=== PATIENT | male | born 1935 | race Caucasian/White ===

== ENCOUNTER 2019-09-12 15:00 | Inpatient (IN) | payer OTHER ==
[~2019-09-12] VITALS: Ht 177.8 cm; Wt 68.0 kg
[2019-09-12 15:07] VITALS: BP 118/88
[2019-09-12] MEDS ORDERED: METFORMIN HCL500 M3 PO (15:17)
[2019-09-12 15:48] LABS: ABSOLUTE LYMPHOCYTES 0.8 thou/uL (0.8-5.3); ABSOLUTE MONOCYTES 0.3 thou/uL (0.0-1.2); ABSOLUTE NEUTROPHILS 4.8 thou/uL (1.6-8.1); BASOPHILS 0.2 %; EOSINOPHILS 0.3 %; HEMATOCRIT 41.9 % (42.0-52.0); HEMOGLOBIN 14.2 gm/dL (14.0-18.0); LYMPHOCYTES 12.9 %; MCH 31.9 pg (26.0-34.0); MCV 93.8 fL (80.0-100.0); MONOCYTES 4.9 %; MPV 9.5 fl. (7.2-11.1); NUCLEATED RBCS 0 /100WBC; PLATELET COUNT* 174 thou/uL (150-400); POLYS 81.7 %; RBC 4.47 mil/uL (4.50-6.00); RDW-CV 13.3 % (10.5-14.5); WBC 5.9 thou/uL (4.0-11.0)
[2019-09-12 16:00] LABS: CALCIUM 9.4 mg/dL (8.5-10.1); CREATININE 1.2 mg/dL (0.6-1.3)
[2019-09-12 16:02] LABS: ALBUMIN 3.5 g/dL (3.4-5.0); TOTAL PROTEIN 7.6 g/dL (6.4-8.2)
[2019-09-12 16:03] LABS: POTASSIUM 6.4 mmol/L (3.5-5.1)
[2019-09-12 16:29] LABS: URINE BILIRUBIN NEGATIVE (Negative); URINE BLOOD NEGATIVE (Negative); URINE CLARITY CLEAR; URINE COLOR YELLOW; URINE GLUCOSE-RANDOM 3+ (Negative); URINE KETONES 2+ (Negative); URINE LEUKOCYTES-REFLEX NEGATIVE (Negative); URINE NITRITE-REFLEX NEGATIVE (Negative); URINE PROTEIN NEGATIVE (Negative); URINE SPECIFIC GRAVITY 1.015 (1.005-1.030); URINE UROBILINOGEN 0.2 E.U./dl (0.2-1.0)
[2019-09-12 20:17] VITALS: BP 147/60
[2019-09-12 20:50] VITALS: BP 129/56
[2019-09-13] VITALS (7 sets, daily range): BP systolic 112–172; BP diastolic 47–79
[2019-09-13 05:14] LABS: HEMATOCRIT 36.4 % (42.0-52.0); HEMOGLOBIN 12.4 gm/dL (14.0-18.0); MCH 31.8 pg (26.0-34.0); MCHC 34.1 g/dL (28.0-37.0); MCV 93.1 fL (80.0-100.0); MPV 9.4 fl. (7.2-11.1); RBC 3.91 mil/uL (4.50-6.00); WBC 6.7 thou/uL (4.0-11.0)
[2019-09-13 05:30] LABS: ALBUMIN 2.9 g/dL (3.4-5.0); CALCIUM 8.8 mg/dL (8.5-10.1); CREATININE 1.2 mg/dL (0.6-1.3); POTASSIUM 4.5 mmol/L (3.5-5.1); TOTAL BILIRUBIN 0.9 mg/dL (<0.1-1.0)
[2019-09-14] VITALS: BP 130/57
[2019-09-14 04:00] VITALS: BP 143/57
[2019-09-14 05:36] LABS: GLYCOHEMOGLOBIN (HGB A1C) 14.6 % (4.8-5.6)
[2019-09-14 08:30] VITALS: BP 132/68
[2019-09-14 12:27] VITALS: BP 145/64
[2019-09-14 17:26] VITALS: BP 135/68
[2019-09-14 20:00] VITALS: BP 139/61
[2019-09-15] VITALS: BP 109/43
[2019-09-15 04:00] VITALS: BP 143/73
[2019-09-15 05:29] LABS: ALBUMIN 2.7 g/dL (3.4-5.0); CALCIUM 8.4 mg/dL (8.5-10.1); CREATININE 0.9 mg/dL (0.6-1.3); POTASSIUM 4.6 mmol/L (3.5-5.1); TOTAL BILIRUBIN 1.1 mg/dL (<0.1-1.0); TOTAL PROTEIN 5.7 g/dL (6.4-8.2)
[2019-09-15 08:00] VITALS: BP 130/80
--- NOTE | 2019-09-15 08:28 | EKG ---
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1935 Requested By: Amarilys Fortune Order Number: [id number] MD: Ranjith Simmons Measurements Intervals [place] Rate: 64 P: -59 WI: 185 QRS: -47 QRSD: 104 T: 83 QT: 439 QTc: 453 Interpretive Statements atrial fibrillation 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
--- NOTE | 2019-09-15 14:32 | EKG ---
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1935 Requested By: Amarilys Fortune Order Number: [id number] Jassi MD: Bradly Hooks Measurements Intervals [place] Rate: 62 P: -18 NE: 147 QRS: -47 QRSD: 106 T: 161 QT: 440 QTc: 447 Interpretive Statements Sinus rhythm Atrial premature complexes 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
[2019-09-15 15:54] VITALS: BP 115/58
[2019-09-15 20:00] VITALS: BP 147/75
[2019-09-16] VITALS: BP 145/74
[2019-09-16 04:00] VITALS: BP 125/61
[2019-09-16 08:35] VITALS: BP 136/64
[2019-09-16 11:45] VITALS: BP 138/69
[2019-09-16] MEDS ORDERED: FLOMAX0.4 MG PO (15:51)
[2019-09-16] MEDS ORDERED: LANTUS100 UNIT/M SUBQ (15:51)
[2019-09-16] MEDS ORDERED: METFORMIN HCL500 M3 PO ×2 (15:51→16:12)
[2019-09-16] MEDS ORDERED: HUMALOG100 UNIT/1 SUBQ (15:51)
[2019-09-16] MEDS ORDERED: SENNA-TIME S T1 EACH PO (15:51)
[2019-09-16 16:14] VITALS: BP 138/69
[2019-09-16 17:33] VITALS: BP 138/69
--- NOTE | 2019-09-20 08:28 | CON ---
[address] [address] CONSULTATION Name: MARTI CHASE Room: [address] IN ..#: [id number] Admission: 09/12/19 Attend Phys: Kaz Ramesh Discharge: 09/16/19 Date of : 37 Report #: [id number] THIS REPORT FOR: //name// CC: Kaz Iqbal DATE OF SERVICE: 09/16/2019 REASON FOR CONSULTATION: Intraductal papillary mucinous neoplasm. SUBJECTIVE: The patient is an 84-year-old male who has been admitted because of unintentional weight loss of more than 30 pounds in the last 2-3 months with decreased appetite and constipation. The patient had an elevated PSA as an outpatient around 11. He did not have the biopsy done yet. The patient underwent a CT scan of the abdomen, which showed abnormal low attenuation cystic changes in the pancreatic body. Findings represent underlying pancreatic mass. MRI has been recommended, which confirmed multicystic masses throughout the pancreas, which appeared to me with a pancreatic duct with dilation of the main pancreatic duct along the distal body, proximal tail measuring up to 6 mm, intraductal papillary mucinous neoplasm is suspected. REVIEW OF SYSTEMS: All systems reviewed. It was negative except the above. PAST MEDICAL HISTORY: Diabetes mellitus and prostate cancer. MEDICATIONS: Per admission list. ALLERGIES: IV IODINE DYE. SOCIAL HISTORY: No smoking, no alcohol abuse, no drug abuse. FAMILY HISTORY: Positive for bladder cancer. PHYSICAL EXAMINATION: VITAL SIGNS: Today, temperature 36.7, pulse 68, respirations 18, and blood pressure is 138/69. GENERAL: The patient was sitting in chair, was not in acute distress. LUNGS: Clear to auscultations bilaterally. HEART: Regular rate and rhythm. S1, S2 within normal limits. ABDOMEN: Soft, nontender, nondistended, bowel sounds positive. LABORATORY DATA: Today, WBC 6.7, hemoglobin 12.4, and platelets 162. Sodium is 138, creatinine 0.9, calcium is 8.4, bilirubin is 1.1, AST 417, ALT 518, and alkaline phosphatase [place] 862. [place] [address] CONSULTATION Name: ESTRADADAOMARTI Room: [address]#: [id number] Admission: 09/12/19 Attend Phys: Kaz Ramesh Discharge: 09/16/19 Date of : 37 Report #: [id number] IMAGING: As mentioned above. 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 RECOMMENDATIONS: We will obtain a CA 19-9 level. We will recommend consultation with Dr. Stone as an outpatient for EUS/ERCP. Follow up in the clinic to evaluate his biopsy results. <ELECTRONICALLY SIGNED> By: Ramesh Brown MD 09/20/19 0828 1442 [id number] Brown MD /nt
== END 2019-09-16 17:30 | disposition home or self-care (01) | DRG 439 ==
LOC: M.ERS 15:00 → M.2W 19:02 → M.TBA-ER 19:02 → M.2W 19:57
PROVIDERS: Nurse Practitioner Family; ADMIT Family Medicine
DX: D13.6 Benign neoplasm of pancreas (principal); E44.0 Moderate protein-calorie malnutrition; E11.65 Type 2 diabetes mellitus with hyperglycemia; K80.20 Calculus of gallbladder without cholecystitis without obstruction; K86.89 Other specified diseases of pancreas; E87.5 Hyperkalemia; C61 Malignant neoplasm of prostate; R79.89 Other specified abnormal findings of blood chemistry; K59.00 Constipation, unspecified; K83.8 Other specified diseases of biliary tract; K82.8 Other specified diseases of gallbladder; Z79.84 Long term (current) use of oral hypoglycemic drugs; Z68.21 Body mass index [BMI] 21.0-21.9, adult; Z79.899 Other long term (current) drug therapy; Z91.041 Radiographic dye allergy status